=== PATIENT | female | born 1940 | race Asian ===

== ENCOUNTER → 2019-08-23 | Outpatient (CLI) | payer MEDICARE, OTHER ==
[~2019-08-23] MED LIST: ACET-784 PO; AMLO2.5T4 PO; ASPI-1182 PO; CALC1TAB15 PO; CETI5TAB20 PO; CHOL100018 PO; METO-558 PO; TELM40 PO
[2019-08-23 12:31] LABS: BASOPHILS % (AUTO) 1.1 % (0.0-2.0); EOSINOPHILS % (AUTO) 2.9 % (1.0-6.0); HEMATOCRIT 40.4 % (36-46); HEMOGLOBIN 13.4 g/dL (12.0-16.0); LYMPHOCYTES # (AUTO) 2.9 K/uL (1.0-4.8); LYMPHOCYTES % (AUTO) 36.6 % (22.0-44.0); MEAN CORPUSCULAR HEMOGLOBIN 31.3 pg (26.0-34.0); MEAN CORPUSCULAR HGB CONC 33.2 G/dL (31.0-37.0); MEAN CORPUSCULAR VOLUME 94 fL (80-100); MONOCYTES # (AUTO) 0.5 K/uL (0.1-1.0); NEUTROPHILS # (AUTO) 4.1 K/uL (1.8-7.7); NEUTROPHILS % (AUTO) 52.4 % (40.0-70.0); PLATELET COUNT (AUTO) 236 K/uL (150-450); RED BLOOD CELL COUNT(AUTO) 4.29 MIL/uL (4.00-5.20); RED CELL DISTRIBUTION WIDTH 13.4 % (11.5-14.5)
[2019-08-23 12:49] LABS: HEMOGLOBIN A1C 5.3 % (4.5-6.2)
[2019-08-23 13:04] LABS: ALANINE AMINOTRANSFERASE 54 U/L (12-78); ALBUMIN 3.7 g/dL (3.4-5.0); ALKALINE PHOSPHATASE 88 U/L (46-116); ANION GAP 8 mmol/L (8-16); ASPARTATE AMINOTRANSFERASE 39 U/L (15-37); BILIRUBIN,TOTAL 0.4 mg/dL (0.1-1.0); CALCIUM, TOTAL 9.3 mg/dL (8.8-10.5); CARBON DIOXIDE 29 mmol/L (22-29); CHLORIDE 104 mmol/L (98-107); CHOL/HDL RATIO 2.6 (3.9-5.7); CHOLESTEROL 179 mg/dL (131-200); CREATININE 0.85 mg/dL (0.60-1.30); GLUCOSE,RANDOM 97 mg/dL (70-110); HDL CHOLESTEROL 70 mg/dL (40-60); LDL CHOL (CALC.) 82 mg/dL (0-130); POTASSIUM 4.5 mmol/L (3.5-5.1); SODIUM SERUM 141 mmol/L (136-145); THYROID STIMULATING HORMONE 2.61 uIU/mL (0.36-3.74); TOTAL PROTEIN, SERUM 8.1 g/dL (6.4-8.2); TRIGLYCERIDES 137 mg/dL (15-150); UREA NITROGEN, BLOOD 18 mg/dL (7-18)
[2019-08-23 13:13] LABS: GLOMERULAR FILTR. RATE CALC > 60 mL/min (>60)
== END | disposition home or self-care (01) ==
LOC: LABPV 10:36
PROVIDERS: ATTEND Internal Medicine
DX: E78.2 Mixed hyperlipidemia (principal); Z79.899 Other long term (current) drug therapy
CPT/HCPCS: 83036; 84443

== ENCOUNTER → 2020-08-29 | Outpatient (CLI) | payer MEDICARE, OTHER ==
[~2020-08-29] MED LIST changes: -AMLO2.5T4 PO; +AMLO2.5T96 PO; +ASPI-1111 PO; -ASPI-1182 PO
[2020-08-29 13:25] LABS: BASOPHILS % (AUTO) 1.4 % (0.0-2.0); EOSINOPHILS % (AUTO) 2.7 % (1.0-6.0); HEMATOCRIT 41.7 % (36-46); HEMOGLOBIN 13.7 g/dL (12.0-16.0); LYMPHOCYTES # (AUTO) 2.5 K/uL (1.0-4.8); LYMPHOCYTES % (AUTO) 38.5 % (22.0-44.0); MEAN CORPUSCULAR HEMOGLOBIN 31.4 pg (26.0-34.0); MEAN CORPUSCULAR HGB CONC 32.9 G/dL (31.0-37.0); MEAN CORPUSCULAR VOLUME 96 fL (80-100); MONOCYTES # (AUTO) 0.4 K/uL (0.1-1.0); MONOCYTES % (AUTO) 6.3 % (2.0-9.0); NEUTROPHILS # (AUTO) 3.3 K/uL (1.8-7.7); NEUTROPHILS % (AUTO) 51.1 % (40.0-70.0); PLATELET COUNT (AUTO) 229 K/uL (150-450); RED BLOOD CELL COUNT(AUTO) 4.36 MIL/uL (4.00-5.20); RED CELL DISTRIBUTION WIDTH 12.8 % (11.5-14.5)
[2020-08-29 13:55] LABS: ALBUMIN 4.1 g/dL (3.4-5.0); BILIRUBIN,TOTAL 0.4 mg/dL (0.1-1.0); CHOL/HDL RATIO 3.4 (3.9-5.7); CREATININE 0.91 mg/dL (0.60-1.30); POTASSIUM 4.6 mmol/L (3.5-5.1); THYROID STIMULATING HORMONE 2.2 uIU/mL (0.36-3.74)
[2020-08-29 16:22] LABS: HEMOGLOBIN A1C 5.7 % (3.8-5.6)
== END | disposition home or self-care (01) ==
LOC: LABPV 09:11
PROVIDERS: ATTEND Internal Medicine
DX: Z79.899 Other long term (current) drug therapy (principal)
CPT/HCPCS: 83036; 84443

== ENCOUNTER → 2021-08-07 | Outpatient (CLI) | payer MEDICARE, OTHER ==
[~2021-08-07] MED LIST changes: -ASPI-1111 PO; +ASPI-1444 PO
[2021-08-07 12:17] LABS: BASOPHILS % (AUTO) 1.4 % (0.0-2.0); EOSINOPHILS % (AUTO) 3.3 % (1.0-6.0); HEMATOCRIT 40.2 % (36-46); HEMOGLOBIN 13.2 g/dL (12.0-16.0); LYMPHOCYTES % (AUTO) 31.9 % (22.0-44.0); MEAN CORPUSCULAR HEMOGLOBIN 31.2 pg (26.0-34.0); MEAN CORPUSCULAR HGB CONC 32.8 G/dL (31.0-37.0); MEAN CORPUSCULAR VOLUME 95 fL (80-100); MONOCYTES # (AUTO) 0.4 K/uL (0.1-1.0); MONOCYTES % (AUTO) 6.8 % (2.0-9.0); NEUTROPHILS # (AUTO) 3.5 K/uL (1.8-7.7); NEUTROPHILS % (AUTO) 56.6 % (40.0-70.0); PLATELET COUNT (AUTO) 235 K/uL (150-450); RED BLOOD CELL COUNT(AUTO) 4.23 MIL/uL (4.00-5.20); RED CELL DISTRIBUTION WIDTH 13.2 % (11.5-14.5)
[2021-08-07 12:28] LABS: HEMOGLOBIN A1C 5.9 % (3.8-5.6)
[2021-08-07 12:34] LABS: ALANINE AMINOTRANSFERASE 36 U/L (12-78); ALBUMIN 3.8 g/dL (3.4-5.0); ALKALINE PHOSPHATASE 95 U/L (46-116); ANION GAP 12 mmol/L (8-16); ASPARTATE AMINOTRANSFERASE 26 U/L (15-37); BILIRUBIN,TOTAL 0.4 mg/dL (0.1-1.0); CALCIUM, TOTAL 8.9 mg/dL (8.8-10.5); CARBON DIOXIDE 30 mmol/L (22-29); CHLORIDE 107 mmol/L (98-107); CHOLESTEROL 177 mg/dL (131-200); CREATININE 0.85 mg/dL (0.60-1.30); GLUCOSE,RANDOM 94 mg/dL (70-110); HDL CHOLESTEROL 60 mg/dL (40-60); LDL CHOL (CALC.) 88 mg/dL (0-130); POTASSIUM 4.7 mmol/L (3.5-5.1); SODIUM SERUM 149 mmol/L (136-145); TOTAL PROTEIN, SERUM 8.2 g/dL (6.4-8.2); TRIGLYCERIDES 143 mg/dL (15-150); UREA NITROGEN, BLOOD 14 mg/dL (7-18)
[2021-08-07 12:36] LABS: GLOMERULAR FILTR. RATE CALC > 60 mL/min (>60)
== END | disposition home or self-care (01) ==
LOC: LABPV 08:19
PROVIDERS: ATTEND Internal Medicine
DX: E78.2 Mixed hyperlipidemia (principal); Z79.899 Other long term (current) drug therapy
CPT/HCPCS: 80053; 80061; 83036; 84443; 85025

== ENCOUNTER → 2022-07-24 | Outpatient (CLI) | payer MEDICARE, OTHER ==
[2022-07-24 09:17] LABS: BASOPHILS % (AUTO) 0.5 % (0.0-2.0); EOSINOPHILS % (AUTO) 1.5 % (1.0-6.0); HEMATOCRIT 38.6 % (36-46); HEMOGLOBIN 12.9 g/dL (12.0-16.0); LYMPHOCYTES # (AUTO) 1.8 K/uL (1.0-4.8); LYMPHOCYTES % (AUTO) 27.2 % (22.0-44.0); MEAN CORPUSCULAR HEMOGLOBIN 31.3 pg (26.0-34.0); MEAN CORPUSCULAR HGB CONC 33.5 G/dL (31.0-37.0); MEAN CORPUSCULAR VOLUME 94 fL (80-100); MONOCYTES # (AUTO) 0.4 K/uL (0.1-1.0); MONOCYTES % (AUTO) 6.2 % (2.0-9.0); NEUTROPHILS # (AUTO) 4.2 K/uL (1.8-7.7); NEUTROPHILS % (AUTO) 64.6 % (40.0-70.0); PLATELET COUNT (AUTO) 256 K/uL (150-450); RED BLOOD CELL COUNT(AUTO) 4.12 MIL/uL (4.00-5.20); RED CELL DISTRIBUTION WIDTH 12.7 % (11.5-14.5)
[2022-07-24 09:32] LABS: HEMOGLOBIN A1C 5.7 % (3.8-5.6)
[2022-07-24 09:33] LABS: ALANINE AMINOTRANSFERASE 30 U/L (12-78); ALKALINE PHOSPHATASE 85 U/L (46-116); ANION GAP 3 mmol/L (8-16); ASPARTATE AMINOTRANSFERASE 22 U/L (15-37); BILIRUBIN,TOTAL 0.4 mg/dL (0.1-1.0); CALCIUM, TOTAL 9.6 mg/dL (8.8-10.5); CARBON DIOXIDE 30 mmol/L (22-29); CHLORIDE 102 mmol/L (98-107); CHOL/HDL RATIO 2.8 (3.9-5.7); CHOLESTEROL 194 mg/dL (131-200); CREATININE 0.84 mg/dL (0.60-1.30); GLOMERULAR FILTR. RATE CALC > 60 mL/min (>60); GLUCOSE,RANDOM 110 mg/dL (70-110); HDL CHOLESTEROL 70 mg/dL (40-60); LDL CHOL (CALC.) 97 mg/dL (0-130); POTASSIUM 4.8 mmol/L (3.5-5.1); SODIUM SERUM 135 mmol/L (136-145); TOTAL PROTEIN, SERUM 8.2 g/dL (6.4-8.2); TRIGLYCERIDES 133 mg/dL (15-150); UREA NITROGEN, BLOOD 10 mg/dL (7-18)
== END | disposition home or self-care (01) ==
LOC: LABMN 08:57
PROVIDERS: ATTEND Internal Medicine
DX: E78.2 Mixed hyperlipidemia (principal); R73.03 Prediabetes
CPT/HCPCS: 80053; 80061; 83036; 84443; 85025

== ENCOUNTER 2023-03-18 10:24 | Emergency (ER) | payer MEDICARE, OTHER ==
[~2023-03-18] VITALS: Ht 154.9 cm; Wt 70.5 kg
[2023-03-18] MEDS ORDERED: VALA100026 PO (13:02)
[2023-03-18 13:27] VITALS: BP 140/78
== END 2023-03-18 13:36 | disposition home or self-care (01) ==
LOC: EMS 10:25
DX: B02.9 Zoster without complications (principal); I10 Essential (primary) hypertension
CPT/HCPCS: 99281; Z7502